=== PATIENT | male | born 1960 | race Caucasian/White ===

== ENCOUNTER 2017-09-23 12:27 | Emergency (ER) | payer BC, SELFPAY | END 2017-09-23 15:29 | disposition home or self-care (01) | DX: S00.11XA Contusion of right eyelid and periocular area, initial encounter (principal); R11.0 Nausea; W27.8XXA Contact with other nonpowered hand tool, initial encounter | CPT/HCPCS: 70450; 70486; 99284 ==

== ENCOUNTER → 2021-10-13 10:16 | Outpatient (CLI) | payer BC, SELFPAY ==
[2021-10-13 11:32] LABS: COVID19 -Nasal RAPID Negative (Negative)
== END ==
PROVIDERS: Visit Provider Family Medicine Sleep Medicine
DX: Z20.822 Contact with and (suspected) exposure to COVID-19 (principal)
CPT/HCPCS: 87635; C9803

== ENCOUNTER 2021-10-15 09:11 | Day surgery (SDC) | payer BC, SELFPAY ==
[2021-10-15 09:29] VITALS: BMI 22.9
[2021-10-15 09:43] VITALS: BP 116/79; PULSE 66; RESP 16; TEMP 36.7; O2SAT 100
[2021-10-15] MEDS: LACTATED RINGERS 1,000 ML 84 ML IV (10:02)
--- NOTE | 2021-10-15 10:52 | PM.HP.1 ---
History of Present Illness History of Present Illness Chief complaint: [facility] [place] Narrative: Colon cancer screening Patient History Medical History (Updated 10/14/21 @ 14:39 by Janel Larsen RN) Sleep apnea Family & Social History Social History: household members spouse Tobacco & Substance use: Smoking Status Never smoker alcohol intake current alcohol intake frequency other Substance Use Type does not use Meds Home Medications and Allergies Home Medications Medication Instructions Recorded Confirmed Type alprazolam 1 tab PO 10/15/21 History Allergies Allergy/AdvReac Type Severity Reaction Status Date / Time No Known Allergies Allergy Uncoded 10/15/21 09:37 Review of Systems Review of Systems Narrative: Negative Exam Vital Signs (past 8 hours): - 10/15/21 09:43 Temperature 98.1 F Pulse Rate 66 Respiratory Rate 16 Blood Pressure 116/79 Pulse Oximetry 100 Oxygen Delivery Method Room Air Narrative Exam Narrative: Awake alert and oriented x3, pupils equal round reactive to light, oropharynx clear, heart regular rate and rhythm, lungs clear to auscultation bilaterally, abdomen nontender and nondistended, extremities without edema, no gross neurologic deficits noted Assessment & Plan Assessment & Plan narrative: Colon cancer screening for colonoscopy Time Spent With Patient Critical Care time: I spent a total of [] minutes of critical care time on this patient's care today; this time is exclusive of procedural time.
--- NOTE | 2021-10-15 11:12 | PM.OP.COLON ---
Operative Date/Time/Diagnoses Date of procedure: 10/15/21 Procedure & Clinicians Study performed: Diagnostic colonoscopy Indications: Personal history of colon polyps. Last colonoscopy was in 2017 at which time a hyperplastic polyp was removed. Procedure Notes Procedure in detail: Prior to the procedure, history and physical was performed, and patient medications and allergies were reviewed. Preprocedure nursing history and assessment was reviewed. Patient identification and proposed procedure were verified by the physician and nurse in the procedure room. The physical status of the patient was reassessed after the procedure. After informed consent was obtained including risks, benefits, and alternatives, the scope was passed under direct vision. Throughout the procedure, the patient's blood pressure, pulse, and oxygen saturations were monitored continuously. The colonoscope was introduced through the anus and advanced to the cecum as identified by the appendiceal orifice and ileocecal valve. The patient tolerated the procedure well. Bowel prep was deemed adequate to detect polyps greater than 5 mm. Perianal and digital rectal examinations were unremarkable Retroflexion in the rectum was unrevealing. The entire examined colon was normal appearing Complications: other (EBL minimal. No complications) Impression: Normal colonoscopy No specimens taken Post-procedure Plan for aftercare: Repeat colonoscopy in 10 years for screening purposes Resume home medications Resume previous diet Patient has a contact number available for emergencies. The signs and symptoms of potential delayed complications were discussed with the patient. Return to normal activities tomorrow. Written discharge instructions were provided to the patient. Discharge home with escort
[2021-10-15 11:17] VITALS: BP 88/46; PULSE 73; RESP 13; TEMP 36.6; O2SAT 99
[2021-10-15 11:22] VITALS: BP 102/73; PULSE 74; RESP 12; O2SAT 98
[2021-10-15 11:27] VITALS: BP 117/76; PULSE 66; RESP 12; O2SAT 98
[2021-10-15 11:32] VITALS: BP 110/75; PULSE 67; RESP 15; O2SAT 97
--- NOTE | 2021-10-15 11:33 | SUR.PHASEI ---
Discharge instructions reviewed with pt and he verbalized understanding.
== END 2021-10-15 11:55 | disposition home or self-care (01) ==
PROVIDERS: Referring Provider Internal Medicine; Visit Provider Internal Medicine
PROC: 0DJD8ZZ Inspection of Lower Intestinal Tract, Via Natural or Artificial Opening Endoscopic (ICD-10-PCS; CPT 45378; principal; 2021-10-15 10:30)
DX: Z12.11 Encounter for screening for malignant neoplasm of colon (principal); Z86.010 Personal history of colon polyps
CPT/HCPCS: 45378; J2704